=== PATIENT | male | born 1945 | race Asian ===

== ENCOUNTER 2021-04-26 10:29 | Inpatient (IN) | payer MEDICARE, SELFPAY ==
[~2021-04-26] VITALS: Ht 172.7 cm; Wt 81.6 kg
[2021-04-26 10:45] VITALS: BP 121/51
--- NOTE | 2021-04-26 10:55 | NUR ---
76 Y/O M BIBA C/O SOB ON AND OFF FOR ONE MONTH. PT WAS COVID + ON APRIL 20 AT [facility] AND WAS DISCHARGED THE SAME DAY WITH MEDS WHICH HE WAS COMPLIENT. PT IS VACINATED X2. ( SEPTEMBER AND NOVEMBER) DID NOT HER HIS BUSTER. PMH: HTN NKA
--- NOTE | 2021-04-26 12:14 | NUR ---
NICHOLE SWAB DONE AND TAKEN TO THE LAB.
[2021-04-26 12:37] LABS: BASOPHILS % (AUTO) 0.3 % (0.0-2.0); EOSINOPHILS % (AUTO) 0.4 % (0.0-4.0); HEMATOCRIT 41.5 % (36-52); HEMOGLOBIN 14.2 g/dL (12.0-18.0); LYMPHOCYTES % (AUTO) 16.1 % (20.5-51.1); MEAN CORPUSCULAR HEMOGLOBIN 36 pg (27-31); MEAN CORPUSCULAR HGB CONC 34 g/dL (33-37); MEAN CORPUSCULAR VOLUME 105.1 fL (80-94); MONOCYTES % (AUTO) 14.9 % (1.7-9.3); NEUTROPHILS # (AUTO) 4.4 K/uL (1.8-7.7); NEUTROPHILS % (AUTO) 68.3 % (42.2-75.2); PLATELET COUNT (AUTO) 226 K/uL (140-450); RED BLOOD CELL COUNT(AUTO) 3.95 MIL/uL (4.20-6.10); RED CELL DISTRIBUTION WIDTH 12.1 % (11.6-13.7); WHITE BLOOD COUNT (AUTO) 6.4 K/uL (4.8-10.8)
--- NOTE | 2021-04-26 12:54 | NUR ---
PT EATING LUNCH.
--- NOTE | 2021-04-26 12:54 | NUR ---
X-RAY AT BEDSIDE.
[2021-04-26 13:11] LABS: PROTHROMBIN TIME 9.9 secs (10.8-13.4)
--- NOTE | 2021-04-26 13:11 | NUR ---
TO ER BED 8
[2021-04-26 13:20] LABS: ALBUMIN 3.4 g/dL (3.4-5.0); ANION GAP 13.7 (8-16); ASPARTATE AMINOTRANSFERASE 14 U/L (15-37); CARBON DIOXIDE 22.1 mmol/L (21-32); CHLORIDE 99 mmol/L (98-107); GLUCOSE 112 mg/dL (74-106); POTASSIUM 3.8 mmol/L (3.5-5.1); SODIUM SERUM 131 mmol/L (136-145); TOTAL BILIRUBIN 0.6 mg/dL (0.0-1.0); UREA NITROGEN, BLOOD 12 mg/dL (7-18)
[2021-04-26 13:21] LABS: LACTATE DEHYDROGENASE 105 U/L (85-227)
--- NOTE | 2021-04-26 13:30 | NUR ---
LAB CALLED, PT POSOTIVE FOR COVID. MD MALAVE NOTIFIED.
[2021-04-26 13:35] LABS: C-REACTIVE PROTEIN QUANT 5.1 mg/dL (0.0-0.9)
[2021-04-26 13:39] LABS: APPEARANCE,URINE CLEAR (CLEAR); BILIRUBIN,URINE NEGATIVE (NEGATIVE); BLOOD, URINE TRACE-I (NEGATIVE); COLOR,URINE YELLOW (YELLOW); LEUKOCYTE ESTERASE ,URINE NEGATIVE (NEGATIVE); NITRITE, URINE NEGATIVE (NEGATIVE); UGLUCOSE NEGATIVE (NEGATIVE)
[2021-04-26 13:40] LABS: RSV NEGATIVE (NEGATIVE)
[2021-04-26] MEDS ORDERED: AZITHROMYCIN 500 MG in DEXTROSE 5% 250 ML IV ONE (14:15)
[2021-04-26] MEDS ORDERED: ALBUTEROL SULFATE/IPRATROPIU 3 ML SOL IH ONE (14:15)
[2021-04-26] MEDS ORDERED: predniSONE 20 MG TAB PO ONE (14:15)
[2021-04-26] MEDS ORDERED: AZITHROMYCIN 500 MG INJ VIAL IV ONE (14:55)
--- NOTE | 2021-04-26 18:58 | NUR ---
CALLED RT FOR THE PT BREATHING TREATMENT THAT WAS NEVER DONE. KEILA FROM RT WILL FOLLOW UP.
--- NOTE | 2021-04-26 19:27 | NUR ---
GAVE REPORT TO ARUN DENTON.
[2021-04-26] MEDS ORDERED: ACETAMINOPHEN 325 MG TAB PO PRN (22:50)
[2021-04-26] MEDS ORDERED: HYDROcodone/APAP 7.5/325 MG 1 TAB PO PRN (22:50)
[2021-04-26] MEDS ORDERED: DOCUSATE SODIUM 100 MG GELCAP PO PRN (22:50)
[2021-04-26] MEDS ORDERED: ONDANSETRON 4 MG/2 ML VIAL IM/IVP PRN (22:50)
[2021-04-26] MEDS ORDERED: POTASSIUM CHLORIDE 10 MEQ TABER PO PRN (22:50)
[2021-04-26] MEDS ORDERED: guaiFENesin DM 200/20 MG-10 ML 10 ML UDC PO PRN (22:50)
[2021-04-26] MEDS ORDERED: ALBUTEROL SULFATE/IPRATROPIU 3 ML SOL IH PRN (23:00)
[2021-04-26 23:54] LABS: FREE T4 (FREE THYROXINE) 1.43 ng/dL (0.76-1.46); MAGNESIUM 2.1 mg/dL (1.8-2.4); PHOSPHORUS 2.9 mg/dL (2.5-4.9); THYROID STIMULATING HORMONE 1.15 uIU/mL (0.34-3.74)
[2021-04-26] MEDS ORDERED: PIPERACILLIN/TAZOBACTAM 3.375 GM VIAL IV ONE (23:56)
[2021-04-27] MEDS: PIPERACILLIN/TAZOBACTAM 3.375 GM in DEXTROSE 5% 50 ML IV SCH ×3 (00:08→12:19)
[2021-04-27] MEDS: NACL 0.9% 1,000 ML IV SCH ×2 (01:01→15:51)
[2021-04-27 01:30] LABS: CHOL/HDL RATIO 2.3 (1-4.5)
--- NOTE | 2021-04-27 01:53 | NUR ---
PT IS NOW RESTING COMFORTABLY IN SEMI FOWLERS. PT STATES HE HAS HAD TROUBLE SLEEPING THE LAST 3 DAYS.
[2021-04-27] MEDS: ZOLPIDEM 5 MG TAB PO PRN ×2 (01:58→21:44)
[2021-04-27] MEDS ORDERED: PIPERACILLIN/TAZOBACTAM 3.375 GM VIAL IV ONE ×2 (05:27→12:09)
--- NOTE | 2021-04-27 07:25 | NUR ---
REPORT GIVEN TO MARCUS MAYORGA
[2021-04-27] MEDS: ASCORBIC ACID 500 MG TAB PO SCH (08:29)
[2021-04-27] MEDS: PANTOPRAZOLE 40 MG TABEC PO SCH (08:29)
[2021-04-27] MEDS: ZINC SULF 220 MG CAP PO SCH (08:30)
[2021-04-27] MEDS: ALBUTEROL SULFATE/IPRATROPIU 3 ML SOL IH SCH ×3 (08:43→19:22)
[2021-04-27 08:58] LABS: BASOPHILS % (AUTO) 0.2 % (0.0-2.0); EOSINOPHILS % (AUTO) 0.2 % (0.0-4.0); HEMATOCRIT 39.5 % (36-52); HEMOGLOBIN 13.6 g/dL (12.0-18.0); LYMPHOCYTES # (AUTO) 1.7 K/uL (2.0-11.5); LYMPHOCYTES % (AUTO) 21.7 % (20.5-51.1); MEAN CORPUSCULAR HEMOGLOBIN 36 pg (27-31); MEAN CORPUSCULAR HGB CONC 35 g/dL (33-37); MONOCYTES % (AUTO) 12.6 % (1.7-9.3); NEUTROPHILS # (AUTO) 5.2 K/uL (1.8-7.7); NEUTROPHILS % (AUTO) 65.3 % (42.2-75.2); PLATELET COUNT (AUTO) 236 K/uL (140-450); RED BLOOD CELL COUNT(AUTO) 3.76 MIL/uL (4.20-6.10); RED CELL DISTRIBUTION WIDTH 12.1 % (11.6-13.7)
[2021-04-27 09:09] LABS: ANION GAP 14.9 (8-16); CARBON DIOXIDE 24.9 mmol/L (21-32); CHLORIDE 102 mmol/L (98-107); CREATININE 1.1 mg/dL (0.6-1.3); GLUCOSE 126 mg/dL (74-106); POTASSIUM 3.8 mmol/L (3.5-5.1); SODIUM SERUM 138 mmol/L (136-145); UREA NITROGEN, BLOOD 15 mg/dL (7-18)
--- NOTE | 2021-04-27 10:49 | NUR ---
PATIENT HAS BEEN SCREENED AND CATEGORIZED LOW NUTRITION RISK. PATIENT WILL BE SEEN WITHIN 7 DAYS OF ADMISSION. 05/03/[address]
[2021-04-27] MEDS ORDERED: cefTRIAXone 1,000 MG VIAL ONE (14:31)
--- NOTE | 2021-04-27 15:48 | NUR ---
800 ML URINE EMPTED.
[2021-04-27] MEDS ORDERED: remdesivir COMMUNICATION ORDER 1 EA MISC MC PRN (15:55)
[2021-04-27] MEDS ORDERED: DEXAMETHASONE 4 MG/ML VIAL IVP ONE (16:55)
[2021-04-27] MEDS ORDERED: REMDESIVIR. 200 MG in NACL 0.9% 100 ML IV SCH (17:00)
[2021-04-27] MEDS ORDERED: remdesivir CLINICAL MONITORING 1 EA MISC MC PRN (17:00)
--- NOTE | 2021-04-27 17:19 | NUR ---
LEFT A MESSAGE WITH DR SERGIO GUIDO DECADRON IV ORDER HAD BEEN PUT IN 1658, BUT PT GOT DECADRON PO THIS MORNING 0828 AM.
--- NOTE | 2021-04-27 19:15 | NUR ---
GAVE REPORT TO ARUN DENTON.
--- NOTE | 2021-04-28 01:47 | NUR ---
PT IS NOW RESTING COMFORTABLY IN SEMI FOWLERS. PT STATES HE USUALLY HAS TROUBLE SLEEPING. HOB IS RAISED, BED IS IN LOWEST SETTING, AND RAILS ARE UP X2.
[2021-04-28 07:12] LABS: BASOPHILS % (AUTO) 0.2 % (0.0-2.0); EOSINOPHILS % (AUTO) 0.2 % (0.0-4.0); HEMATOCRIT 40.8 % (36-52); HEMOGLOBIN 13.8 g/dL (12.0-18.0); LYMPHOCYTES # (AUTO) 1.5 K/uL (2.0-11.5); LYMPHOCYTES % (AUTO) 19.5 % (20.5-51.1); MEAN CORPUSCULAR HEMOGLOBIN 36 pg (27-31); MEAN CORPUSCULAR HGB CONC 34 g/dL (33-37); MEAN CORPUSCULAR VOLUME 105.4 fL (80-94); MONOCYTES # (AUTO) 0.9 K/uL (0.8-1.0); MONOCYTES % (AUTO) 11.8 % (1.7-9.3); NEUTROPHILS # (AUTO) 5.2 K/uL (1.8-7.7); NEUTROPHILS % (AUTO) 68.3 % (42.2-75.2); PLATELET COUNT (AUTO) 236 K/uL (140-450); RED BLOOD CELL COUNT(AUTO) 3.87 MIL/uL (4.20-6.10); WHITE BLOOD COUNT (AUTO) 7.7 K/uL (4.8-10.8)
[2021-04-28] MEDS: ALBUTEROL SULFATE/IPRATROPIU 3 ML SOL IH SCH ×3 (07:14→19:00)
--- NOTE | 2021-04-28 07:25 | NUR ---
GAVE TRANSFER OF CARE REPORT TO SHAZIA DENTON
--- NOTE | 2021-04-28 07:25 | NUR ---
REPORT RECEIVED FROM ARUN DENTON FOR CONTINUITY OF CARE. A&OX4. ON NASAL CANNULA 3 LPM. IV SITE RT AC 20G, INTACT, PATENT, INFUSING NS 60 ML/HR. SKIN INTACT, WARM AND DRY. WILL CONTINUE TO MONITOR.
[2021-04-28 07:29] LABS: ANION GAP 14.9 (8-16); CARBON DIOXIDE 24.6 mmol/L (21-32); CHLORIDE 105 mmol/L (98-107); CREATININE 0.9 mg/dL (0.6-1.3); GLUCOSE 121 mg/dL (74-106); POTASSIUM 3.5 mmol/L (3.5-5.1); SODIUM SERUM 141 mmol/L (136-145); UREA NITROGEN, BLOOD 13 mg/dL (7-18)
[2021-04-28 07:30] LABS: ALBUMIN 2.9 g/dL (3.4-5.0); BILIRUBIN,DIRECT 0.2 mg/dL (0.0-0.3); TOTAL BILIRUBIN 0.7 mg/dL (0.0-1.0)
[2021-04-28] MEDS: NACL 0.9% 1,000 ML IV SCH ×2 (08:24→23:05)
[2021-04-28] MEDS: PANTOPRAZOLE 40 MG TABEC PO SCH (08:36)
[2021-04-28] MEDS: DEXAMETHASONE 4 MG/ML VIAL IVP SCH (08:36)
[2021-04-28] MEDS: ASCORBIC ACID 500 MG TAB PO SCH (08:37)
[2021-04-28] MEDS: ZINC SULF 220 MG CAP PO SCH (08:37)
[2021-04-28 09:07] LABS: T4 (THYROXINE) 8.2 ug/dL (4.5-12.0)
--- NOTE | 2021-04-28 09:48 | NUR ---
PT AMBULATED TO RESTROOM, STEADY GAIT
--- NOTE | 2021-04-28 09:51 | NUR ---
PT EATING BREAKFAST TRAY
[2021-04-28] MEDS ORDERED: REMDESIVIR. 200 MG in NACL 0.9% 100 ML IV SCH (12:00)
--- NOTE | 2021-04-28 12:00 | NUR ---
PT EATING LUNCH TRAY
[2021-04-28] MEDS ORDERED: cefTRIAXone 1,000 MG VIAL ONE (13:03)
--- NOTE | 2021-04-28 14:30 | NUR ---
Patient has eyes closed, resting in bed. On 3 L Nasal Cannula. Vital Signs within normal limits. Respirations even and unlabored. Chest rise is symmetrical. Will continue to monitor.
--- NOTE | 2021-04-28 18:57 | NUR ---
PT EATING DINNER TRAY
--- NOTE | 2021-04-28 19:19 | NUR ---
Pt report given to KIAH DENTON. Transfer of care at this time.
--- NOTE | 2021-04-28 20:30 | NUR ---
report called to jordan alford
--- NOTE | 2021-04-28 21:00 | NUR ---
to 116 VIA GURNEY ATTACHED TO CM, ACCOMPANIED BY RN AND ERT
[2021-04-28 21:30] VITALS: BP 126/79
--- NOTE | 2021-04-28 22:00 | NUR ---
RECEIVED REPORT OVER THE PHONE FROM ER NURSE, PT BROUGHT UP VIA GL 2oursSHANNEN HE IS AOX4 ON 3 LITERS VIA N/C. HE HAS A 20G ON THE RIGHT AC. HE WAS PLACED ON NORMAL SALINE AT 60MLS/HR. MRSA SWAB DONE ADMISSION V/S FOLLOWS: T 97.3 P 90 R20 B/P 126/79 02 94% ON 3 LITERS VIA N/C. PT WAS GIVEN HEPARIN SQ . PT EDUCATED ON COVID PROTOCOL AND PLACED ON 02 MONITORING. ALL REQUESTED NEEDS ATTENDED BY STAFF.
--- NOTE | 2021-04-28 23:15 | NUR ---
PT C/O OF MODERATE 6/10 PAIN IN THE RIGHT SHOULDER, HE WAS GIVEN PO/PRN NORCO.
--- NOTE | 2021-04-29 00:30 | NUR ---
ROUNDS DONE, V/S FOLLOWS: T 98.6 P 66 R 20 B/P 110/66. PT RESTING IN BED WITH EYES CLOSED AROUSABLE TO NAME . DENIES ANY PAIN ALL REQUESTED NEEDS ATTENDED BY STAFF.
[2021-04-29 04:00] VITALS: BP 112/60
--- NOTE | 2021-04-29 06:00 | NUR ---
PT IN BED NO C/O VOICED. HE REMAINS ON 3 LITERS VIA N/C. V/S FOLLOWS: T 97.5 P 70 R 20 B/P 112/60 02 97$% ON 3 LITERS VAI N/C. ALL REQUESTED NEEDS ATTENDED BY STAFF. ALL ORDERED PRECAUTIONS IN PLACE.
[2021-04-29 06:24] LABS: BASOPHILS % (AUTO) 0.3 % (0.0-2.0); EOSINOPHILS % (AUTO) 0.2 % (0.0-4.0); HEMOGLOBIN 13.2 g/dL (12.0-18.0); LYMPHOCYTES # (AUTO) 1.4 K/uL (2.0-11.5); LYMPHOCYTES % (AUTO) 28.9 % (20.5-51.1); MEAN CORPUSCULAR HEMOGLOBIN 36 pg (27-31); MEAN CORPUSCULAR HGB CONC 35 g/dL (33-37); MEAN CORPUSCULAR VOLUME 104.1 fL (80-94); MONOCYTES # (AUTO) 0.6 K/uL (0.8-1.0); NEUTROPHILS # (AUTO) 2.8 K/uL (1.8-7.7); NEUTROPHILS % (AUTO) 58.6 % (42.2-75.2); PLATELET COUNT (AUTO) 255 K/uL (140-450); RED BLOOD CELL COUNT(AUTO) 3.65 MIL/uL (4.20-6.10); RED CELL DISTRIBUTION WIDTH 11.9 % (11.6-13.7); WHITE BLOOD COUNT (AUTO) 4.7 K/uL (4.8-10.8)
[2021-04-29 07:25] LABS: ANION GAP 15.7 (8-16); CARBON DIOXIDE 20.9 mmol/L (21-32); CHLORIDE 105 mmol/L (98-107); CREATININE 0.9 mg/dL (0.6-1.3); GLUCOSE 120 mg/dL (74-106); POTASSIUM 3.6 mmol/L (3.5-5.1); SODIUM SERUM 138 mmol/L (136-145); UREA NITROGEN, BLOOD 16 mg/dL (7-18)
[2021-04-29] MEDS: ALBUTEROL SULFATE/IPRATROPIU 3 ML SOL IH SCH ×3 (07:27→20:57)
[2021-04-29 08:00] VITALS: BP 123/66
--- NOTE | 2021-04-29 08:05 | NUR ---
RECEIVED REPORT FROM RELAY RECORD CLERK RN; PATIENT IN BED AWAKE, AX4. NO S/S OF RESPIRATORY DISTRESS. BREATHING EVEN UNLABORED. ALL SAFETY PRECAUTIONS ARE IN PLACE. CALL LIGHT WITHIN REACH.
[2021-04-29 08:46] LABS: ALBUMIN 2.8 g/dL (3.4-5.0); BILIRUBIN,DIRECT 0.2 mg/dL (0.0-0.3); TOTAL BILIRUBIN 0.6 mg/dL (0.0-1.0)
[2021-04-29] MEDS: PANTOPRAZOLE 40 MG TABEC PO SCH (08:54)
[2021-04-29] MEDS: DEXAMETHASONE 4 MG/ML VIAL IVP SCH (08:54)
[2021-04-29] MEDS: ASCORBIC ACID 500 MG TAB PO SCH (08:54)
[2021-04-29] MEDS: ZINC SULF 220 MG CAP PO SCH (08:55)
--- NOTE | 2021-04-29 09:46 | NUR ---
PATIENT IN BED NO COMPLAINS NO SOD NOTED, GOT MORNING MEDICATION TOLERATED WELL ALL SAFETY MEASURES ON PLACE, CALLS LIGHT WITHIN REACH,
--- NOTE | 2021-04-29 11:10 | NUR ---
PATIENT IN BED NO COMPLAINS NO SOD NOTED, ALL SAFETY MEASURES ON PLACE, CALLS LIGHT WITHIN REACH,
--- NOTE | 2021-04-29 11:53 | NUR ---
DC PLANNING: THE PATIENT ADMITTED FROM HOME WITH C/O SOB X 2 DAYS. PATIENT WITH PRIOR ADMISSION TO [facility] FOR COVID. H/O HTN AND COPD, CXR SHOWS ATELECTASIS AND INFILTRATES. ID AND PULMO CONSULTS, COVID PROTOCOL OF REMDESIVIR, DECADRON, AND ROCEPHIN, ALSO ON IVF'S. PATIENT CURRENTLY ON 2L AND SATTING AT 98%, RT ASSESSED THE PATIENT, HE IS SATTING 92-94% ON RA WITH EXERTION. CM SPOKE WITH THE PATIENTS SON SHAR BY PHONE, THE PATIENTS LIVES IN A GROUND FLOOR APARTMENT WITH HIS SPOUSE, SON AND DAUGHTER IN [place]. HE HAS NO DME OF H/O HOME HEALTH AND NORMALLY WALKS IN THE LOCAL PARK DAILY AND HAS NO ACTIVITY LIMITATIONS. THE PATIENT IS ON DAY 2 OF REMDESIVIR AND ABX, DCP IS FOR THE PATIENT TO RETURN HOME WITH FAMILY WHEN CLINICALLY STABLE. CM WILL FOLLOW FOR NEEDS.
[2021-04-29 12:00] VITALS: BP 107/54
[2021-04-29] MEDS: REMDESIVIR. 100 MG in NACL 0.9% 100 ML IV SCH (12:23)
--- NOTE | 2021-04-29 13:01 | NUR ---
PATIENT IN BED NO COMPLAINS NO SOD NOTED, ALL SAFETY MEASURES ON PLACE, CALLS LIGHT WITHIN REACH,
--- NOTE | 2021-04-29 15:00 | NUR ---
PATIENT IN BED NO COMPLAINS NO SOD NOTED, ALL SAFETY MEASURES ON PLACE, CALLS LIGHT WITHIN REACH,
[2021-04-29 16:00] VITALS: BP 128/69
[2021-04-29] MEDS: NACL 0.9% 1,000 ML IV SCH (17:10)
--- NOTE | 2021-04-29 17:11 | NUR ---
PATIENT IN BED NO COMPLAINS NO SOD NOTED, ALL SAFETY MEASURES ON PLACE, CALLS LIGHT WITHIN REACH,
--- NOTE | 2021-04-29 19:52 | NUR ---
FULL BEDSIDE REPORT GIVEN TO MILLING MACHINE OPERATOR GEAR NURSE
--- NOTE | 2021-04-29 19:53 | NUR ---
RECEIVED ENDORSEMENT FROM AM RN FOR CONTINUITY OF CARE. PATIENT AWAKE, ALERT VERBALLY RESPONSIVE. ABLE TO COMMUNICATE WITH HIS NEEDS. NO S/S OF RESPIRATORY DISTRESS. BREATHING REGULAR UNLABORED. SKIN WARM AND DRY TO THE TOUCH. NO COMPLAINTS OF PAIN OR ANY DISCOMFORT AT THIS TIME. ALL SAFETY PRECAUTIONS ARE IN PLACE. CALL LIGHT WITHIN REACH. WILL CONTINUE TO MONITOR.
[2021-04-29 20:00] VITALS: BP 135/67
--- NOTE | 2021-04-29 20:57 | NUR ---
PT PRESENTS SITTING AT THE EDGE OF HIS BED CURRENT SATURATION 96% ON 2LPM NASAL CANNULA. PT TOLERATED HHN TX WELL PT STATES IT IS DIFFICULT TO LAY ON HIS LEFT SIDE DURING SLEEP AND REPORTS HAVING A NON PRODUCTIVE COUGH AND TROUBLE SLEEPING. NO DISTRESS NOTED WILL CONTINUE TO MONITOR.
--- NOTE | 2021-04-29 21:13 | NUR ---
HEPARIN ADMINISTERED ORDERED BY
--- NOTE | 2021-04-29 21:30 | NUR ---
PATIENT IS SITTING AT THE EDGE OF THE BED. OFFERED SANDWICH AND JUICE. NEEDS WELL ATTENDED.
[2021-04-30] VITALS: BP 130/60
--- NOTE | 2021-04-30 02:25 | NUR ---
PATIENT IS SLEEPING. NO SIGNS OF DISTRESS NOTED. CALL LIGHT ON EASY REACH.
[2021-04-30 04:00] VITALS: BP 112/73
--- NOTE | 2021-04-30 07:22 | NUR ---
REPORT GIVEN TO AM NURSE FOR CONTINUITY OF CARE. PATIENT IS STABLE.
--- NOTE | 2021-04-30 07:23 | NUR ---
RECEIVED REPORT FROM PARTS IDENTIFICATION TECHNICIAN NURSE FOR CONTINUITY OF CARE.
[2021-04-30] MEDS: ALBUTEROL SULFATE/IPRATROPIU 3 ML SOL IH SCH ×2 (07:45→14:44)
[2021-04-30 07:51] LABS: ANION GAP 12.8 (8-16); CARBON DIOXIDE 22.8 mmol/L (21-32); CHLORIDE 106 mmol/L (98-107); CREATININE 0.8 mg/dL (0.6-1.3); GLUCOSE 108 mg/dL (74-106); POTASSIUM 3.6 mmol/L (3.5-5.1); SODIUM SERUM 138 mmol/L (136-145); UREA NITROGEN, BLOOD 12 mg/dL (7-18)
[2021-04-30 08:00] VITALS: BP 121/67
[2021-04-30 08:02] LABS: BASOPHILS % (AUTO) 0.1 % (0.0-2.0); EOSINOPHILS % (AUTO) 0.1 % (0.0-4.0); HEMATOCRIT 37.5 % (36-52); HEMOGLOBIN 12.9 g/dL (12.0-18.0); LYMPHOCYTES # (AUTO) 1.1 K/uL (2.0-11.5); LYMPHOCYTES % (AUTO) 26.9 % (20.5-51.1); MEAN CORPUSCULAR HEMOGLOBIN 36 pg (27-31); MEAN CORPUSCULAR HGB CONC 34 g/dL (33-37); MEAN CORPUSCULAR VOLUME 104.2 fL (80-94); MONOCYTES # (AUTO) 0.5 K/uL (0.8-1.0); MONOCYTES % (AUTO) 11.6 % (1.7-9.3); NEUTROPHILS # (AUTO) 2.6 K/uL (1.8-7.7); NEUTROPHILS % (AUTO) 61.3 % (42.2-75.2); PLATELET COUNT (AUTO) 246 K/uL (140-450); WHITE BLOOD COUNT (AUTO) 4.2 K/uL (4.8-10.8)
[2021-04-30 08:09] LABS: ALBUMIN 2.6 g/dL (3.4-5.0); BILIRUBIN,DIRECT 0.2 mg/dL (0.0-0.3); TOTAL BILIRUBIN 0.6 mg/dL (0.0-1.0)
[2021-04-30] MEDS: ASCORBIC ACID 500 MG TAB PO SCH (09:54)
[2021-04-30] MEDS: ZINC SULF 220 MG CAP PO SCH (09:54)
[2021-04-30] MEDS: PANTOPRAZOLE 40 MG TABEC PO SCH (09:54)
[2021-04-30] MEDS: DEXAMETHASONE 4 MG/ML VIAL IVP SCH (09:56)
[2021-04-30] MEDS: NACL 0.9% 1,000 ML IV SCH (10:10)
--- NOTE | 2021-04-30 10:13 | NUR ---
PT SITTING IN CHAIR. PT ON RM AIR SATURATING AT 96%. NO S/S OF DISTRESS. CALL LIGHT IN REACH. ALL SAFETY MEASURES IN PLACE
[2021-04-30 12:00] VITALS: BP 143/75
[2021-04-30] MEDS: REMDESIVIR. 100 MG in NACL 0.9% 100 ML IV SCH (12:53)
--- NOTE | 2021-04-30 13:25 | NUR ---
PT STABLE. STILL ON RA SAT AT 96%. CALL LIGHT IN REACH. ALL SAFETY MEASURES IN PLACE. PT REFUSED FUTURE VEKLURY ADMINISTRATION. DISCHARGE ORDER IN PLACE. PT STATED IV WAS LEAKING, CHANGED DRESSING AND RESTARTED INFUSION.
[2021-04-30] MEDS ORDERED: AZIT250T4 PO (13:27)
[2021-04-30] MEDS ORDERED: ALBU0.0912 INH (13:27)
[2021-04-30] MEDS ORDERED: DEC4 PO (13:27)
[2021-04-30] MEDS ORDERED: ZINC220C29 PO (13:27)
[2021-04-30] MEDS ORDERED: ASPI-1822 PO (13:27)
[2021-04-30] MEDS ORDERED: VITC500 PO (13:27)
--- NOTE | 2021-04-30 14:40 | NUR ---
IV LEAKING DURING PREVIOUS ADMINISTRATION. NO IV ACCESS FOR IV MEDICATION
--- NOTE | 2021-04-30 15:20 | NUR ---
PT DISCHARGED HOME WITH FAMILY. NO S/S OF DISTRESS. IV [id number], CANULA INTACT. PT TOLERATED WELL. ALL PERSONAL BELONGINGS IN POSSESSION. ALL SAFETY MEASURES IN PLACE
== END 2021-04-30 15:00 | disposition home or self-care (01) | DRG 871 ==
LOC: MED 10:29 → MTU 22:34 → MED 22:34 → MTU 04-28 17:15
PROVIDERS: ADMIT Family Medicine; ATTEND Family Medicine
PROC: XW033E5 Introduction of Remdesivir Anti-infective into Peripheral Vein, Percutaneous Approach, New Technology Group 5 (ICD-10-PCS; principal; 2021-04-27)
DX: A41.9 Sepsis, unspecified organism (principal); U07.1 COVID-19; J69.0 Pneumonitis due to inhalation of food and vomit; J12.82 Pneumonia due to coronavirus disease 2019; J96.01 Acute respiratory failure with hypoxia; E44.0 Moderate protein-calorie malnutrition; E87.1 Hypo-osmolality and hyponatremia; J44.0 Chronic obstructive pulmonary disease with (acute) lower respiratory infection; E86.0 Dehydration; I10 Essential (primary) hypertension; E78.5 Hyperlipidemia, unspecified; Z68.27 Body mass index [BMI] 27.0-27.9, adult
CPT/HCPCS: 36415; 36600; 71045; 80048; 80053; 80076; 81003; 82150; 82550; 82803; 83036; 83605; 83615; 83690; 83735; 83880; 84100; 84436; 84439; 84443; 84479; 84484; 85025; 85379; 85384; 85610; 85651; 85730; 86140; 87040; 87081; 87086; 87420; 92610; 93005; 94640; 96365; 97163-GP; 99285; J0456; J0696; J1100; J1644; J2543; J7060; J7512; Q0092